=== PATIENT | male | born 1995 ===

== ENCOUNTER → 2022-02-14 | Outpatient (CLI) | payer OTHER ==
[~2022-02-14] VITALS: Ht 182.9 cm; Wt 91.2 kg
== END | disposition home or self-care (01) ==
LOC: Rad HDHVI 14:45
PROVIDERS: ATTEND Internal Medicine Cardiovascular Disease
DX: R07.89 Other chest pain (principal); R00.2 Palpitations; Z82.49 Family history of ischemic heart disease and other diseases of the circulatory system
CPT/HCPCS: 93017

== ENCOUNTER → 2022-02-20 | Outpatient (CLI) | payer OTHER | END | disposition home or self-care (01) | LOC: Rad HDHVI 15:18 | PROVIDERS: ATTEND Internal Medicine Cardiovascular Disease | DX: R00.2 Palpitations (principal); R07.89 Other chest pain | CPT/HCPCS: 93306 ==